=== PATIENT | male | born 1990 | race Caucasian/White ===

== ENCOUNTER 2020-04-23 19:35 | Emergency (ER) | payer SELFPAY ==
[2020-04-23] MEDS ORDERED: ASPIRIN 81 MG TABLET, CHEWABLE PO ONE (20:21)
--- NOTE | 2020-04-23 20:21 | ER Document Report ---
ED Medical Screen (RME) - General Chief Complaint: Arrhythmia Stated Complaint: ARRHYTHMIA, SHAKINESS, NAUSEA Time Seen by Provider: 04/23/20 20:16 Mode of Arrival: Ambulatory Information source: Patient Notes: 29-year-old male presented to ED for complaint of shakiness and heart irregular at home. He states his iPhone watch states that he is having an arrhythmia. His EKG does show sinus rhythm. He states he was drinking heavily and has not had anything to drink in the last week. He did not know if that was why he was having the shakiness and the arrhythmias. He is alert oriented respirations regular nonlabored speaking in full sentences. He smokes 1 or 2 cigars a week, he states until a week ago he was drinking Michelob light anywhere from 1-3 beer every day. He has not had any in the last week. He states he does not use any illicit drugs. States he does have a history of high cholesterol no other issues. Blood pressure is 154/90 with a pulse of 94. I have greeted and performed a rapid initial assessment of this patient. A comprehensive ED assessment and evaluation of the patient, analysis of test results and completion of medical decision making process will be conducted by an additional ED providers. Physical Exam - Vital signs Vitals: Temp Pulse Resp BP Pulse Ox 98.9 F 94 20 154/90 H 99 04/23/20 20:08 04/23/20 20:08 04/23/20 20:08 04/23/20 20:08 04/23/20 20:08 Course - Vital Signs Vital signs: Temp Pulse Resp BP Pulse Ox 98.9 F 94 20 154/90 H 99 04/23/20 20:08 04/23/20 20:08 04/23/20 20:08 04/23/20 20:08 04/23/20 20:08
--- NOTE | 2020-04-23 21:08 | RADIOLOGY REPORT (SQ) ---
EXAM DESCRIPTION: XR CHEST 2 VIEWS COMPLETED DATE/TME: 04/23/2020 20:21 CLINICAL INDICATION: 29-year-old male with chest pain. TECHNIQUE: Two-view, PA and lateral projections of the chest were obtained. COMPARISON: None. FINDINGS: Unremarkable cardiac and mediastinal silhouette. Heart size is normal. Lungs are clear without focal opacity, pneumothorax or pleural effusions. The visualized bones are within normal limits. IMPRESSION: No acute cardiopulmonary abnormalities.
[2020-04-23 22:00] LABS: ABSOLUTE LYMPHOCYTES (AUTO) 1.8 10^3/uL (0.5-4.7); ABSOLUTE MONOCYTES (AUTO) 0.6 10^3/uL (0.1-1.4); ABSOLUTE NEUT (AUTO) 5.2 10^3/uL (1.7-8.2); BASOPHILS % (AUTO) 0.5 % (0-2); EOSINOPHILS % (AUTO) 0.5 % (0-6); HEMATOCRIT 45.5 % (37.9-51.0); HEMOGLOBIN 15.4 g/dL (13.5-17.0); LYMPHOCYTES % (AUTO) 23.8 % (13-45); MEAN CORPUSCULAR HEMOGLOBIN 29.5 pg (27.0-33.4); MEAN CORPUSCULAR HGB CONC 33.9 g/dL (32.0-36.0); MEAN CORPUSCULAR VOLUME 87 fl (80-97); MONOCYTES % (AUTO) 7.2 % (3-13); PLATELET COUNT 223 10^3/uL (150-450); RED BLOOD COUNT 5.22 10^6/uL (4.35-5.55); RED CELL DISTRIBUTION WIDTH 13.9 % (11.5-14.0); TOTAL CELLS COUNTED % (AUTO) 100 %; WHITE BLOOD COUNT 7.6 10^3/uL (4.0-10.5)
[2020-04-23 22:27] LABS: ALBUMIN 4.8 g/dL (3.5-5.0); ALKALINE PHOSPHATASE 85 U/L (38-126); ANION GAP 7 (5-19); ASPARTATE AMINO TRANSFERASE 24 U/L (17-59); BILIRUBIN,TOTAL 0.6 mg/dL (0.2-1.3); BLOOD UREA NITROGEN 11 mg/dL (7-20); CALCIUM 9.5 mg/dL (8.4-10.2); CARBON DIOXIDE 26 mmol/L (22-30); CHLORIDE 104 mmol/L (98-107); CREATINE KINASE 93 U/L (55-170); GLUCOSE 97 mg/dL (75-110); POTASSIUM 4.4 mmol/L (3.6-5.0); TOTAL PROTEIN 7.7 g/dL (6.3-8.2)
[2020-04-24 01:48] VITALS: BP 145/97
--- NOTE | 2020-04-24 16:30 | EKG REPORT ---
SEVERITY:- NORMAL ECG - SINUS RHYTHM : Confirmed by: Yair Hu MD 24-Apr-2020 16:29:09
== END 2020-04-24 02:15 | disposition left against medical advice (07) ==
LOC: ER 19:35
DX: I49.9 Cardiac arrhythmia, unspecified (principal); R25.1 Tremor, unspecified; R11.0 Nausea
CPT/HCPCS: 36415; 71046; 80053; 82550; 83735; 84484; 85025; 93005; 93010; 99281